=== PATIENT | male | born 1975 | race Caucasian/White ===

== ENCOUNTER 2022-12-29 07:04 | Day surgery (SDC) | payer OTHER ==
[2022-12-22 14:26] LABS: BASOPHILS % (AUTO) 0.7 % (0-1); EOSINOPHILS # (AUTO) 0.1 X10'3 (0-0.9); EOSINOPHILS % (AUTO) 1.5 % (0-6); LYMPHOCYTES # (AUTO) 1.7 X10'3 (1.1-4.8); LYMPHOCYTES % (AUTO) 21.9 % (21-51); MEAN CORPUSCULAR HEMOGLOBIN 32.5 PG (27.0-31.0); MEAN CORPUSCULAR HGB CONC 34.8 g/dL (33.0-36.5); MEAN CORPUSCULAR VOLUME 93.5 FL (78-98); MEAN PLATELET VOLUME 8.2 FL (7.4-10.4); MONOCYTES # (AUTO) 0.6 X10'3 (0-0.9); MONOCYTES % (AUTO) 8.1 % (2-12); NEUTROPHILS # (AUTO) 5.2 X10'3 (1.8-7.7); NEUTROPHILS % (AUTO) 67.8 % (42-75); PRE OP HEMATOCRIT 45.8 % (42.0-52.0); PRE OP HEMOGLOBIN 15.9 g/dL (14.0-17.9); PRE OP PLATELET COUNT 223 X10'3 (140-440); PRE OP WHITE BLOOD COUNT 7.7 10'3 (4.8-10.8); RED CELL DISTRIBUTION WIDTH 12.2 % (11.5-14.5)
[2022-12-22 14:39] LABS: ALBUMIN/GLOBULIN RATIO 1.3 (1.1-1.5); ALKALINE PHOSPHATASE 89 IU/L (46-116); BLOOD UREA NITROGEN 16 MG/DL (7-18); BUN/CREATININE RATIO 16.7 (10.0-20.0); CALCIUM 9.2 MG/DL (8.5-10.1); CHLORIDE 103 MMOL/L (99-107); CREATININE 0.96 MG/DL (0.60-1.10); PRE OP ALT 36 U/L (30-65); PRE OP ANION GAP 9 (8-16); PRE OP AST 15 U/L (10-37); PRE OP BILIRUB, TOTAL 0.9 MG/DL (0.0-1.0); PRE OP POTASSIUM 4.1 MMOL/L (3.4-5.1); PRE OP SODIUM 139 MMOL/L (135-145); TOTAL CARBON DIOXIDE 27.1 MMOL/L (24-32); eGFR 83 ML/MIN
[2022-12-22 14:41] LABS: PRE OP GLUCOSE 224 MG/DL (70-104)
[2022-12-29] VITALS (13 sets, daily range): BP systolic 123–160; BP diastolic 85–91; PULSE 72–92; RESP 10–16; TEMP 98.4; O2SAT 98–100
[~2022-12-29] VITALS: Ht 185.4 cm; Wt 86.2 kg
[~2022-12-29 07:04] MED LIST: BUPIVAcaine/PF 2.5 mg/ml (0.25%) 30ml vial ONE; INSU100I29 SQ; INSU100I38 SQ; LIDOcaine 1% 30ml preserv. free vial ONE; LISI20TA28 PO; ceFOXitin 2GM-NS 100mL ADDvant 100 ML IV ONE; famotidine 20mg tablet PO ONE; ringers solution, lacted 1,000 ML IV SCH
[2022-12-29] MEDS ORDERED: meperidine/PF 25mg/ml syringe IV PRN ×2 (07:10)
[2022-12-29] MEDS ORDERED: ondansetron/PF 4mg/2ml inj IV PRN (07:10)
[2022-12-29] MEDS ORDERED: fentaNYL/PF 50MCG/1 ML 2ML syringe IV PRN ×2 (07:10)
[2022-12-29] MEDS ORDERED: ringers solution, lacted 1,000 ML IV SCH (07:10)
[2022-12-29] MEDS ORDERED: hydrALAZINE 20mg/ml inj. IV PRN (07:10)
[2022-12-29] MEDS ORDERED: labetalol 20mg/4ml (5mg/ml) syringe IV PRN (07:10)
[2022-12-29] MEDS ORDERED: sevoflurane 250ml liquid IH ONE (09:01)
[2022-12-29] MEDS ORDERED: midazolam 1 mg/ML 2ml injection ONE (09:10)
[2022-12-29] MEDS ORDERED: fentaNYL/PF 50MCG/1 ML 2ML syringe ONE (09:10)
[2022-12-29] MEDS ORDERED: ondansetron/PF 4mg/2ml inj ONE (09:16)
[2022-12-29] MEDS ORDERED: propofol inj 20 ML IV ONE (09:17)
[2022-12-29] MEDS ORDERED: LIDOcaine 2% (20mg/ml) 5ml vial ONE (09:17)
[2022-12-29] MEDS ORDERED: rocuronium 10mg/ml inj IV ONE (09:17)
[2022-12-29] MEDS ORDERED: metoclopramide 5 mg/ml inj ONE (09:17)
[2022-12-29] MEDS ORDERED: neostigmine methylsulfate 1 MG/ML 10ml vial ONE (09:18)
[2022-12-29] MEDS ORDERED: glycopyrrolate 0.2mg/ml inj ONE (09:19)
[2022-12-29] MEDS ORDERED: acetaminophen 1,000mg/100ml IV 100 ML IV ONE (09:20)
--- NOTE | 2022-12-29 10:15 | NUR ---
Received from OR via [facility], accompanied by Anesthesiologist DR DE LA FUENTE and report given by Anesthesiologist. PT IS GROGGY BUT RESPONDS EASILY TO VERBAL STIMULI AND FOLLOWS COMMANDS. PT PLACED ON BEDSIDE MONITOR, VSS. PT IS IN SR WITH RATE IN 80'S. PT IS RECEIVING 8L O2 TO MASK AND TOLERATING WELL WITH O2 SAT >96%, WILL TITRATE DOWN AT PT TOLERATES. PT HAS 20G PIV TO RT HAND WITH LR INFUSING ORDERED. PT HAS BAND-AID X3 TO MID ABD THAT ARE ALL CDI. PT DENIES PAIN AT THIS TIME. WILL CONTINUE TO ASSESS.
[2022-12-29] MEDS ORDERED: HYDROcodone/acetaminophen 5mg/325mg tablet PO PRN (10:20)
--- NOTE | 2022-12-29 12:35 | NUR ---
ALL DISCHARGE CRITERIA HAS BEEN MET. VSS, PAIN AT A TOLERABLE LEVEL, VOIDED 375ML VIA URINAL AND ABLE TO SAFELY AMBULATE AND TRANSFER SELF. IV TAKEN OUT WITHOUT ANY COMPLICATIONS. ALL DISCHARGE INSTRUCTIONS COVERED WITH PATIENT AND ALL QUESTIONS ANSWERED. PATIENT TAKEN OUT VIA WHEELCHAIR TO PERSONAL VEHICLE WHERE DAUGHTER DIANA DROVE PATIENT HOME.
== END 2022-12-29 12:30 | disposition home or self-care (01) ==
LOC: PAS 07:04
PROVIDERS: ATTEND Surgery
DX: K40.90 Unilateral inguinal hernia, without obstruction or gangrene, not specified as recurrent (principal); I10 Essential (primary) hypertension; E11.9 Type 2 diabetes mellitus without complications; Z87.442 Personal history of urinary calculi; Z88.5 Allergy status to narcotic agent; Z79.899 Other long term (current) drug therapy; Z79.4 Long term (current) use of insulin; Z72.89 Other problems related to lifestyle; Z82.3 Family history of stroke; Z83.3 Family history of diabetes mellitus; Z82.49 Family history of ischemic heart disease and other diseases of the circulatory system
CPT/HCPCS: 36415; 49650; 80053; 82948; 85025; 93005; C1781; J0131; J0694; J2250; J2405; J2704; J2710; J2765; J3010; J3490; J7030; J7120; S2900; Z7506; Z7508; Z7512; A4215; A4618

== ENCOUNTER 2024-05-07 10:02 | Day surgery (SDC) | payer OTHER ==
[2024-05-03 15:06] LABS: BASOPHILS % (AUTO) 0.7 % (0-1); EOSINOPHILS # (AUTO) 0.1 X10'3 (0-0.9); EOSINOPHILS % (AUTO) 2.1 % (0-6); LYMPHOCYTES # (AUTO) 1.6 X10'3 (1.1-4.8); LYMPHOCYTES % (AUTO) 28.4 % (21-51); MEAN CORPUSCULAR HGB CONC 34.3 g/dL (33.0-36.5); MEAN CORPUSCULAR VOLUME 93.2 FL (78-98); MEAN PLATELET VOLUME 7.8 FL (7.4-10.4); MONOCYTES # (AUTO) 0.5 X10'3 (0-0.9); MONOCYTES % (AUTO) 8.4 % (2-12); NEUTROPHILS # (AUTO) 3.4 X10'3 (1.8-7.7); NEUTROPHILS % (AUTO) 60.4 % (42-75); PRE OP HEMOGLOBIN 14.7 g/dL (14.0-17.9); PRE OP PLATELET COUNT 212 X10'3 (140-440); PRE OP WHITE BLOOD COUNT 5.6 10'3 (4.8-10.8); RED BLOOD COUNT 4.61 X10'6 (4.70-6.10); RED CELL DISTRIBUTION WIDTH 13.3 % (11.5-14.5)
[2024-05-03 15:12] LABS: ALBUMIN 3.9 G/DL (3.4-5.0); ALBUMIN/GLOBULIN RATIO 1.3 (1.1-1.5); ALKALINE PHOSPHATASE 81 IU/L (46-116); BLOOD UREA NITROGEN 11 MG/DL (7-18); BUN/CREATININE RATIO 12.8 (10.0-20.0); CALCIUM 9.1 MG/DL (8.5-10.1); CHLORIDE 105 MMOL/L (99-107); CREATININE 0.86 MG/DL (0.60-1.10); PRE OP ALT 22 U/L (30-65); PRE OP ANION GAP 10 (8-16); PRE OP AST 10 U/L (10-37); PRE OP BILIRUB, TOTAL 0.8 MG/DL (0.0-1.0); PRE OP GLUCOSE 160 MG/DL (70-104); PRE OP POTASSIUM 4.3 MMOL/L (3.4-5.1); PRE OP SODIUM 141 MMOL/L (135-145); TOTAL CARBON DIOXIDE 25.6 MMOL/L (24-32); TOTAL PROTEIN 6.9 G/DL (6.4-8.2); eGFR > 90 ML/MIN
[~2024-05-07] VITALS: Ht 185.4 cm; Wt 86.0 kg
[2024-05-07] VITALS (16 sets, daily range): BP systolic 120–147; BP diastolic 76–94; PULSE 79–101; RESP 12–17; TEMP 98.1; O2SAT 96–100
[~2024-05-07 10:02] MED LIST changes: +AMLO5TAB16 PO; -BUPIVAcaine/PF 2.5 mg/ml (0.25%) 30ml vial ONE; -LIDOcaine 1% 30ml preserv. free vial ONE; -ceFOXitin 2GM-NS 100mL ADDvant 100 ML IV ONE; -famotidine 20mg tablet PO ONE
[2024-05-07] MEDS: ceFAZolin 2gm in dextrose, iso 50 ML IV ONE (10:18)
[2024-05-07] MEDS: famotidine 20mg tablet PO ONE (11:10)
[2024-05-07] MEDS ORDERED: BUPIVAcaine 2.5mg/ml inj 50ml vial (contains preservative) ONE ×2 (12:04→12:20)
[2024-05-07] MEDS ORDERED: LIDOcaine 1% w/EPI 1:100,000 inj. MDV 50 ML VIAL ONE (12:18)
[2024-05-07] MEDS ORDERED: LIDOcaine 1% (10mg/ml)w/preservative inj. 20ml MDV ONE (12:22)
[2024-05-07] MEDS ORDERED: BUPIVACAINE liposomal/PF 13.3 MG/ML vial IM ONE (12:22)
[2024-05-07] MEDS ORDERED: midazolam 1 mg/ML 2ml injection ONE (12:33)
[2024-05-07] MEDS ORDERED: fentaNYL/PF 50MCG/1 ML 2ML syringe ONE (12:35)
[2024-05-07] MEDS: BUPIVAcaine 2.5mg/ml inj 50ml vial (contains preservative) SQ ONE (12:38)
[2024-05-07] MEDS ORDERED: rocuronium 10mg/ml inj IV ONE (12:57)
[2024-05-07] MEDS ORDERED: dexamethasone sod phosphate 4mg/ml inj. ONE (12:57)
[2024-05-07] MEDS ORDERED: propofol inj 20 ML IV ONE (12:57)
[2024-05-07] MEDS ORDERED: ringers solution, lacted 1,000 ML IV SCH (13:20)
[2024-05-07] MEDS ORDERED: meperidine/PF 25mg/ml syringe IV PRN ×3 (13:20)
[2024-05-07] MEDS ORDERED: proCHLORperazine 10 MG/2 ml inj IV PRN (13:20)
[2024-05-07] MEDS ORDERED: ondansetron/PF 4mg/2ml inj IV PRN (13:20)
[2024-05-07] MEDS ORDERED: glycopyrrolate 0.2mg/ml inj ONE (13:40)
[2024-05-07] MEDS ORDERED: neostigmine methylsulfate 1 MG/ML 10ml vial ONE (13:40)
[2024-05-07] MEDS ORDERED: ondansetron/PF 4mg/2ml inj ONE (13:42)
[2024-05-07] MEDS: oxyCODONE/APAP 5-325mg tablet PO PRN (15:07)
== END 2024-05-07 16:14 | disposition home or self-care (01) ==
LOC: PAS 10:02
PROVIDERS: ATTEND Surgery
DX: K42.9 Umbilical hernia without obstruction or gangrene (principal); Z79.899 Other long term (current) drug therapy; Z88.5 Allergy status to narcotic agent
CPT/HCPCS: 36415; 49593; 64488; 80053; 82948; 85025; 93005; C1781; C9290; J0690; J1100; J2250; J2405; J2704; J2710; J3010; J3490; J7030; J7120; Z7506; Z7508; Z7512; A4215; A4618